=== PATIENT | female | born 1990 | race Asian ===

== ENCOUNTER 2023-02-13 19:00 | Emergency (ER) | payer OTHER ==
[~2023-02-13] VITALS: Ht 167.6 cm; Wt 112.0 kg
[2023-02-13 20:00] VITALS: BP 130/88; TEMP 98
[2023-02-13 21:12] LABS: PLATELET COUNT 312 K/uL (152-353)
[2023-02-13 21:26] LABS: POTASSIUM 3.4 mmol/L (3.6-5.2)
== END 2023-02-13 21:10 | disposition left against medical advice (07) ==
LOC: ED 19:00
PROVIDERS: Family Medicine
DX: O03.9 Complete or unspecified spontaneous abortion without complication (principal); Z53.29 Procedure and treatment not carried out because of patient's decision for other reasons
CPT/HCPCS: 36415; 80053; 81002; 81025; 85027; 96374; 96375; 99284; J1885; J2270; J2405